=== PATIENT | male | born 1960 | race Caucasian/White ===

== ENCOUNTER 2019-01-17 13:09 | Emergency (ER) | payer OTHER ==
[~2019-01-17] VITALS: Ht 170.2 cm; Wt 79.5 kg
[2019-01-17] MEDS ORDERED: ATOR40TA28 PO (13:15)
[2019-01-17] MEDS ORDERED: ASPI81 PO (13:15)
[2019-01-17] MEDS ORDERED: MELO-107 PO (13:15)
[2019-01-17] MEDS ORDERED: LISI-661 PO (13:15)
[2019-01-17] MEDS ORDERED: TICA90TA PO (13:15)
[2019-01-17] MEDS ORDERED: KETOROLAC TROMETHAMINE 10 MG TABLET PO ONE (14:00)
[2019-01-17 14:45] VITALS: BP 133/78
== END 2019-01-17 15:05 | disposition home or self-care (01) ==
LOC: EMS 13:10
DX: M77.9 Enthesopathy, unspecified (principal); I10 Essential (primary) hypertension; E78.00 Pure hypercholesterolemia, unspecified; Z79.82 Long term (current) use of aspirin; Z79.899 Other long term (current) drug therapy

== ENCOUNTER 2019-02-15 09:24 | Emergency (ER) | payer OTHER ==
[~2019-02-15] VITALS: Ht 170.2 cm; Wt 79.5 kg
[~2019-02-15 09:24] MED LIST: ASPI81 PO; ATOR40TA28 PO; LISI-661 PO; MELO-107 PO; TICA90TA PO
[2019-02-15] MEDS ORDERED: LIDOCAINE 5% TRANSDERMAL PATCH TD ONE (10:00)
[2019-02-15] MEDS ORDERED: CYCLOBENZAPRINE HCL 10 MG TABLET PO ONE (10:00)
[2019-02-15 10:21] LABS: APPEARANCE,URINE CLEAR (CLEAR); BILIRUBIN,URINE NEGATIVE (NEGATIVE); GLUCOSE, URINE (UA) NEGATIVE (NEGATIVE); KETONES,URINE NEGATIVE (NEGATIVE); LEUKOCYTE ESTERASE ,URINE NEGATIVE (NEGATIVE); NITRATE,URINE NEGATIVE (NEGATIVE); OCCULT BLOOD,URINE NEGATIVE (NEGATIVE); PROTEIN,URINE NEGATIVE (NEGATIVE); UROBILINOGEN,URINE 0.2 mg/dL (<=1.0)
[2019-02-15 10:32] LABS: BACTERIA,URINE None Seen /HPF (None Seen); RBC,URINE None Seen /HPF (0-2); SQUAMOUS EPITHELIAL CELL,UR Few /LPF (None Seen); WBC,URINE 0-2 /HPF (0-5)
[2019-02-15 11:15] VITALS: BP 125/85
== END 2019-02-15 11:18 | disposition home or self-care (01) ==
LOC: EMS 09:25
DX: K57.90 Diverticulosis of intestine, part unspecified, without perforation or abscess without bleeding (principal); K40.90 Unilateral inguinal hernia, without obstruction or gangrene, not specified as recurrent; N28.1 Cyst of kidney, acquired; I10 Essential (primary) hypertension; E78.00 Pure hypercholesterolemia, unspecified; Z79.899 Other long term (current) drug therapy
CPT/HCPCS: 74176

== ENCOUNTER 2021-04-05 16:32 | Emergency (ER) | payer OTHER ==
[~2021-04-05] VITALS: Ht 175.3 cm; Wt 81.8 kg
[~2021-04-05 16:32] MED LIST changes: +ASPI-1450 PO; -ASPI81 PO; -LISI-661 PO; +LISI-893 PO
[2021-04-05 17:37] LABS: APPEARANCE,URINE RPT (CLEAR); BILIRUBIN,URINE NEGATIVE (NEGATIVE); GLUCOSE, URINE (UA) NEGATIVE (NEGATIVE); KETONES,URINE NEGATIVE (NEGATIVE); LEUKOCYTE ESTERASE ,URINE NEGATIVE (NEGATIVE); NITRATE,URINE NEGATIVE (NEGATIVE); OCCULT BLOOD,URINE NEGATIVE (NEGATIVE); PROTEIN,URINE NEGATIVE (NEGATIVE); UROBILINOGEN,URINE 0.2 mg/dL (<=1.0)
[2021-04-05 17:45] LABS: BACTERIA,URINE None Seen /HPF (None Seen); RBC,URINE None Seen /HPF (0-2)
[2021-04-05 18:27] VITALS: BP 122/69
== END 2021-04-05 18:28 | disposition home or self-care (01) ==
LOC: EMS 16:37
DX: R31.29 Other microscopic hematuria (principal); I10 Essential (primary) hypertension; E78.00 Pure hypercholesterolemia, unspecified; Z79.82 Long term (current) use of aspirin; Z79.899 Other long term (current) drug therapy
CPT/HCPCS: 81001; 99283

== ENCOUNTER 2023-07-29 15:13 | Inpatient (IN) | payer OTHER ==
[2023-07-29] VITALS (15 sets, daily range): BP systolic 84–142; BP diastolic 49–82; PULSE 48–73; RESP 18; TEMP 98.2
[~2023-07-29] VITALS: Ht 170.2 cm; Wt 76.9 kg
[~2023-07-29 15:13] MED LIST changes: -MELO-107 PO; +MELO-381 PO
[2023-07-29 15:26] LABS: COVID AG,FIA SOURCE NASAL SWAB
[2023-07-29] MEDS ORDERED: ATORVASTATIN CALCIUM 40 MG TABLET PO ONE (15:30)
[2023-07-29] MEDS ORDERED: TICAGRELOR 90 MG TABLET PO ONE (15:30)
[2023-07-29] MEDS ORDERED: HEPARIN SODIUM,PORCINE 5,000 UNITS/ML VIAL IVP ONE (15:30)
[2023-07-29 15:41] LABS: BASOPHILS % (AUTO) 0.3 % (0.0-2.0); EOSINOPHILS % (AUTO) 1.3 % (1.0-6.0); HEMATOCRIT 42.7 % (41-53); HEMOGLOBIN 14.7 g/dL (13.5-17.5); LYMPHOCYTES # (AUTO) 4.5 K/uL (1.0-4.8); MEAN CORPUSCULAR HEMOGLOBIN 32.2 pg (26.0-34.0); MEAN CORPUSCULAR HGB CONC 34.5 G/dL (31.0-37.0); MEAN CORPUSCULAR VOLUME 94 fL (80-100); MONOCYTES # (AUTO) 1.1 K/uL (0.1-1.0); MONOCYTES % (AUTO) 11.8 % (2.0-9.0); NEUTROPHILS # (AUTO) 3.8 K/uL (1.8-7.7); NEUTROPHILS % (AUTO) 39.6 % (40.0-70.0); PLATELET COUNT (AUTO) 208 K/uL (150-450); RED BLOOD CELL COUNT(AUTO) 4.56 MIL/uL (4.50-5.90); WHITE BLOOD COUNT (AUTO) 9.5 K/uL (4.5-11.0)
[2023-07-29] MEDS ORDERED: NITR0.4T50 SL (15:43)
[2023-07-29 15:50] LABS: SARS-COV2 (COVID) ANTIGEN,FIA Negative (Negative)
[2023-07-29] MEDS ORDERED: SODIUM BICARBONATE 50 MEQ/50 ML VIAL ONE (15:51)
[2023-07-29] MEDS ORDERED: IOHEXOL 300 MG/ML 100 ML VIAL ONE (15:51)
[2023-07-29] MEDS ORDERED: HEPARIN SODIUM 1000 UNITS/NS 1,000 ML ONE (15:51)
[2023-07-29] MEDS ORDERED: LIDOCAINE/PF 1% 30 ML VIAL ONE (15:51)
[2023-07-29 15:55] LABS: PROTHROMBIN TIME 10.4 SEC (9.4-11.6)
[2023-07-29 16:02] LABS: TROPONIN I-HIGH SENSITIVITY 23 ng/L (<76)
[2023-07-29 16:03] LABS: APPEARANCE,URINE CLEAR (CLEAR); BILIRUBIN,URINE NEGATIVE (NEGATIVE); COLOR,URINE YELLOW (YELLOW); GLUCOSE, URINE (UA) NEGATIVE (NEGATIVE); KETONES,URINE NEGATIVE (NEGATIVE); LEUKOCYTE ESTERASE ,URINE NEGATIVE (NEGATIVE); NITRATE,URINE NEGATIVE (NEGATIVE); OCCULT BLOOD,URINE NEGATIVE (NEGATIVE); PROTEIN,URINE TRACE mg/dL (NEGATIVE); SPECIFIC GRAVITIY, URINE 1.026 (1.003-1.030); UROBILINOGEN,URINE <=1.0 mg/dL (<=1.0)
[2023-07-29 16:05] LABS: B-TYPE NATRIURETIC PEPTIDE 15 pg/mL (0-100)
[2023-07-29] MEDS ORDERED: FentaNYL CITRATE PF 100 MCG/2 ML VIAL ONE (16:06)
[2023-07-29] MEDS ORDERED: MIDAZOLAM HCL 2 MG/2 ML VIAL ONE (16:06)
[2023-07-29] MEDS ORDERED: VERAPAMIL HCL 2.5 MG/ML 2 ML VIAL ONE (16:06)
[2023-07-29] MEDS ORDERED: NITROGLYCERIN 50 MG/D5% WATER 0 ML ONE (16:07)
[2023-07-29] MEDS ORDERED: LIDOCAINE 1% 30 ML/SOD BICARB 8.4% 4 ML SQ ONE (16:15)
[2023-07-29] MEDS ORDERED: IOHEXOL 300 MG/ML 100 ML VIAL IARTER ONE ×2 (16:15→16:45)
[2023-07-29] MEDS ORDERED: MIDAZOLAM HCL 2 MG/2 ML VIAL IVP ONE (16:15)
[2023-07-29] MEDS ORDERED: HEPARIN SODIUM 1000 UNITS/NS 1,000 ML IARTER ONE (16:15)
[2023-07-29] MEDS ORDERED: FentaNYL CITRATE PF 100 MCG/2 ML VIAL IVP ONE (16:15)
[2023-07-29] MEDS ORDERED: HEPARIN SODIUM,PORCINE 1,000 UNITS/ML 10 ML VIAL IVP ONE (16:30)
[2023-07-29 16:34] LABS: ANION GAP 14 mmol/L (8-16); CALCIUM, TOTAL 8.7 mg/dL (8.8-10.5); CARBON DIOXIDE 23 mmol/L (22-29); CHLORIDE 107 mmol/L (98-107); CREATININE 0.89 mg/dL (0.60-1.30); GLOMERULAR FILTR. RATE CALC > 60 mL/min (>60); GLUCOSE,RANDOM 113 mg/dL (70-110); POTASSIUM 3.3 mmol/L (3.5-5.1); SODIUM SERUM 144 mmol/L (136-145); UREA NITROGEN, BLOOD 14 mg/dL (7-18)
[2023-07-29 16:40] LABS: ALANINE AMINOTRANSFERASE 17 U/L (12-78); ALBUMIN 3.8 g/dL (3.4-5.0); ALKALINE PHOSPHATASE 70 U/L (46-116); ASPARTATE AMINOTRANSFERASE 15 U/L (15-37); BILIRUBIN,TOTAL 0.4 mg/dL (0.1-1.0); TOTAL PROTEIN, SERUM 6.9 g/dL (6.4-8.2)
[2023-07-29] MEDS ORDERED: MORPHINE SULFATE 2 MG/ML SYRINGE IVP PRN (23:30)
[2023-07-29] MEDS ORDERED: ACETAMINOPHEN 325 MG TABLET PO PRN (23:30)
[2023-07-29] MEDS ORDERED: ONDANSETRON HCL 4 MG/2 ML VIAL IVP PRN (23:30)
[2023-07-29] MEDS ORDERED: ZOLPIDEM TARTRATE 5 MG TABLET PO PRN (23:30)
[2023-07-29] MEDS ORDERED: IPRATROPIUM BROMIDE 0.5 MG/2.5 ML NEB SOLUTION NEB PRN (23:30)
[2023-07-29] MEDS ORDERED: MAGNESIUM HYDROXIDE SUSPENSION 30 ML UDCUP PO PRN (23:30)
[2023-07-29] MEDS ORDERED: BISACODYL 10 MG RECTAL RECTAL SUPPOSITORY PR PRN (23:30)
[2023-07-29] MEDS ORDERED: HYDROCODONE/ACETAMINOPHEN 5-325 MG TABLET PO PRN (23:30)
[2023-07-29] MEDS ORDERED: ALBUTEROL SULFATE 2.5 MG/0.5 ML NEB SOLUTION NEB PRN (23:30)
[2023-07-30] VITALS (9 sets, daily range): BP systolic 92–119; BP diastolic 51–72; PULSE 44–58; RESP 12–19; TEMP 97.9–98.4
[2023-07-30] MEDS: TICAGRELOR 90 MG TABLET PO SCH ×3 (00:18→21:42)
[2023-07-30] MEDS: HEPARIN SODIUM,PORCINE 5,000 UNITS/ML VIAL SQ SCH ×3 (00:18→16:12)
[2023-07-30] MEDS: ATORVASTATIN CALCIUM 40 MG TABLET PO SCH ×2 (00:19→21:42)
[2023-07-30 06:48] LABS: BASOPHILS % (AUTO) 0.2 % (0.0-2.0); EOSINOPHILS % (AUTO) 0.5 % (1.0-6.0); HEMATOCRIT 39.9 % (41-53); HEMOGLOBIN 13.6 g/dL (13.5-17.5); LYMPHOCYTES % (AUTO) 21.5 % (22.0-44.0); MEAN CORPUSCULAR HEMOGLOBIN 31.8 pg (26.0-34.0); MEAN CORPUSCULAR HGB CONC 34.2 G/dL (31.0-37.0); MEAN CORPUSCULAR VOLUME 93 fL (80-100); MONOCYTES # (AUTO) 0.8 K/uL (0.1-1.0); MONOCYTES % (AUTO) 9.3 % (2.0-9.0); NEUTROPHILS # (AUTO) 6.3 K/uL (1.8-7.7); NEUTROPHILS % (AUTO) 68.5 % (40.0-70.0); PLATELET COUNT (AUTO) 163 K/uL (150-450); RED BLOOD CELL COUNT(AUTO) 4.28 MIL/uL (4.50-5.90); WHITE BLOOD COUNT (AUTO) 9.2 K/uL (4.5-11.0)
[2023-07-30 07:26] LABS: ALANINE AMINOTRANSFERASE 25 U/L (12-78); ALBUMIN 3.3 g/dL (3.4-5.0); ALKALINE PHOSPHATASE 60 U/L (46-116); ANION GAP 11 mmol/L (8-16); ASPARTATE AMINOTRANSFERASE 121 U/L (15-37); BILIRUBIN,TOTAL 0.5 mg/dL (0.1-1.0); CALCIUM, TOTAL 8.5 mg/dL (8.8-10.5); CARBON DIOXIDE 24 mmol/L (22-29); CHLORIDE 106 mmol/L (98-107); CHOL/HDL RATIO 5.2 (4.2-7.3); CHOLESTEROL 188 mg/dL (131-200); CREATININE 0.93 mg/dL (0.60-1.30); GLOMERULAR FILTR. RATE CALC > 60 mL/min (>60); GLUCOSE,RANDOM 124 mg/dL (70-110); HDL CHOLESTEROL 36 mg/dL (40-60); LDL CHOL (CALC.) 134 mg/dL (0-130); SODIUM SERUM 141 mmol/L (136-145); TOTAL PROTEIN, SERUM 6.1 g/dL (6.4-8.2); TRIGLYCERIDES 92 mg/dL (15-150); UREA NITROGEN, BLOOD 12 mg/dL (7-18)
[2023-07-30] MEDS: PANTOPRAZOLE SODIUM 40 MG DR TABLET PO SCH (08:21)
[2023-07-30] MEDS: ASPIRIN 81 MG CHEWABLE TABLET PO SCH (08:21)
[2023-07-31] VITALS: BP 103/61; PULSE 54; RESP 18; TEMP 98.6
[2023-07-31] MEDS ORDERED: TICAGRELOR 90 MG TABLET PO SCH
[2023-07-31] MEDS: HEPARIN SODIUM,PORCINE 5,000 UNITS/ML VIAL SQ SCH ×2 (00:23→08:00)
[2023-07-31 04:00] VITALS: BP 97/66; PULSE 52; RESP 18; TEMP 98.4
[2023-07-31] MEDS: PANTOPRAZOLE SODIUM 40 MG DR TABLET PO SCH (09:00)
[2023-07-31] MEDS: TICAGRELOR 90 MG TABLET PO SCH (09:38)
[2023-07-31] MEDS: ASPIRIN 81 MG CHEWABLE TABLET PO SCH (09:38)
[2023-07-31] MEDS ORDERED: ATOR40TA28 PO (10:36)
[2023-07-31] MEDS ORDERED: TICA90TA PO (10:36)
[2023-07-31] MEDS ORDERED: ASPI-1450 PO (10:36)
[2023-07-31 10:39] VITALS: BP 96/60; PULSE 63; RESP 14; TEMP 98
[2023-08-01] MEDS ORDERED: ASPI81TA87 PO (16:31)
[2023-08-01] MEDS ORDERED: ATOR40TA71 PO (16:31)
[2023-08-01] MEDS ORDERED: TICA90TA PO (16:31)
== END 2023-07-31 15:05 | disposition home or self-care (01) | DRG 321 ==
LOC: EMS 16:05 → ICU 18:04 → 5S 07-30 21:25
PROVIDERS: ADMIT Hospitalist; ATTEND Hospitalist
PROC: 027034Z Dilation of Coronary Artery, One Artery with Drug-eluting Intraluminal Device, Percutaneous Approach (ICD-10-PCS; principal; 2023-07-29)
PROC: 4A023N7 Measurement of Cardiac Sampling and Pressure, Left Heart, Percutaneous Approach (ICD-10-PCS; 2023-07-29)
PROC: B2111ZZ Fluoroscopy of Multiple Coronary Arteries using Low Osmolar Contrast (ICD-10-PCS; 2023-07-29)
PROC: B2151ZZ Fluoroscopy of Left Heart using Low Osmolar Contrast (ICD-10-PCS; 2023-07-29)
DX: I21.3 ST elevation (STEMI) myocardial infarction of unspecified site (principal); I50.23 Acute on chronic systolic (congestive) heart failure; I25.10 Atherosclerotic heart disease of native coronary artery without angina pectoris; J44.9 Chronic obstructive pulmonary disease, unspecified; I11.0 Hypertensive heart disease with heart failure; R00.1 Bradycardia, unspecified; F17.210 Nicotine dependence, cigarettes, uncomplicated; Z20.822 Contact with and (suspected) exposure to COVID-19; E78.00 Pure hypercholesterolemia, unspecified; Z95.5 Presence of coronary angioplasty implant and graft; Z79.899 Other long term (current) drug therapy; Z79.82 Long term (current) use of aspirin; Z82.49 Family history of ischemic heart disease and other diseases of the circulatory system; Z80.9 Family history of malignant neoplasm, unspecified; Z71.6 Tobacco abuse counseling
CPT/HCPCS: 71045; 80053; 80061; 81003; 83735; 83880; 84484; 85025; 85610; 85730; 86850; 86900; 86901; 87081; 92920; 92928; 93005; 93306; 99291; G0378; J1644; J2250; J3010; J3490; Q9967; 36415-L1; 36415-TC; Z7610

== ENCOUNTER 2024-05-25 12:34 | Emergency (ER) | payer OTHER ==
[~2024-05-25] VITALS: Ht 167.6 cm; Wt 79.5 kg
[~2024-05-25 12:34] MED LIST changes: +ASPI81TA87 PO; +ATOR40TA71 PO; -LISI-893 PO; +MELO-107 PO; -MELO-381 PO; +NITR0.4T50 SL
[2024-05-25 12:37] VITALS: TEMP 98
[2024-05-25] MEDS: LIDOCAINE 1% 10 ML VIAL ID ONE (14:32)
[2024-05-25] MEDS: SULFAMETHOX/TRIMETH DS 800-160 MG/TABLET PO ONE (14:32)
[2024-05-25 14:49] VITALS: BP 145/80; PULSE 50; RESP 17; O2SAT 97
[2024-05-25] MEDS ORDERED: NICO-703 TD (15:10)
[2024-05-25] MEDS ORDERED: SULF-261 PO (15:10)
[2024-05-26] MEDS ORDERED: NICO-703 TD (11:55)
[2024-05-26] MEDS ORDERED: SULF-261 PO (11:55)
== END 2024-05-25 16:17 | disposition home or self-care (01) ==
LOC: EMS 12:34
DX: L03.011 Cellulitis of right finger (principal); I10 Essential (primary) hypertension; E78.00 Pure hypercholesterolemia, unspecified; F17.210 Nicotine dependence, cigarettes, uncomplicated; Z79.1 Long term (current) use of non-steroidal anti-inflammatories (NSAID); Z79.82 Long term (current) use of aspirin; Z79.02 Long term (current) use of antithrombotics/antiplatelets; Z95.5 Presence of coronary angioplasty implant and graft
CPT/HCPCS: 99283; 10060; J3490